=== PATIENT | male | born 1960 | race American Indian/Alaskan Native ===

== ENCOUNTER 2018-03-19 07:16 | Emergency (ER) | payer MEDICAID ==
[2018-03-19] MEDS ORDERED: Naloxone 0.4 mg/ml Inj (Adult) IVP STA (07:32)
--- NOTE | 2018-03-19 07:46 | ED PDOC ---
HPI: Psych/Substance Abuse Time Seen by Provider: 03/19/18 07:22 Chief Complaint (Nursing): Altered Mental Status ED Caveat: Other (unresponsive) Onset/Duration Of Symptoms: Hrs (today) Current Symptoms Are (Timing): Still Present Additional Complaint(s): Yaya Brennan is a 58 year old male, with unknown past medical history, who was brought to the emergency department by EMS after patient was found unresponsive on a park bench. History limited due to patient's clinical condition. Past Medical History Reviewed: Unable To Obtain - Family History Family History: States: Unknown Family Hx - Allergies Allergies/Adverse Reactions: Allergies Allergy/AdvReac Type Severity Reaction Status Date / Time No Known Allergies Allergy Verified 03/27/15 19:43 Review of Systems Review Of Systems: ROS cannot be obtained secondary to pt's inabilty to answer questions. Physical Exam - Reviewed Nursing Documentation Reviewed: Yes Vital Signs Reviewed: Yes - Physical Exam Head Exam: Positive for: ATRAUMATIC, NORMOCEPHALIC Skin: Positive for: Normal Color, Warm, Dry Eye Exam: Negative for: PERRL (Pupils pinpoint and slowly reactive) Neck: Positive for: Supple (nontender) Cardiovascular/Chest: Positive for: Regular Rate, Rhythm. Negative for: Murmur Respiratory: Positive for: Normal Breath Sounds. Negative for: Respiratory Distress Gastrointestinal/Abdominal: Positive for: Normal Exam, Soft. Negative for: Tenderness Back: Positive for: Normal Inspection (No deformity or tenderness) Extremity: Positive for: Normal ROM (Full ROM). Negative for: Deformity, Other (track tamayo ) Neurologic/Psych: Negative for: Alert (sleepy, lethargic and difficult to arouse ), Motor/Sensory Deficits (able to move all extremities with equal strength bilaterally) - Laboratory Results Result Diagrams: 03/19/18 07:50 03/19/18 07:50 - Progress Re-evaluation Time: 13:13 Condition: Improved (awake responsive. No focal deficits denies SI/HI) Medical Decision Making Medical Decision Making: Time: 07:22 Initial Plan: --Head w/o contrast --EKG --Alcohol serum --CMP --Drug screen, urine --Urine dipstick --CBC w/ differential --Chest portable [RAD] --Narcan 0.4mg IVP --Reevaluation 09:[address] FINDINGS: HEMORRHAGE: No intracranial hemorrhage. BRAIN: Normal cooley-white matter differentiation and density are appreciated throughout the cerebrum and cerebellum with the brainstem appearing unremarkable as well. There is no mass effect. There is no suspicious extra-axial fluid collection and the midline brain anatomy appears diffusely unremarkable. VENTRICLES: Unremarkable. No hydrocephalus. CALVARIUM: No destructive bony lesion or displaced fracture identified including through the skullbase. PARANASAL SINUSES: Incidental mucosal inflammatory changes are identified are identified affecting the ethmoid sinuses diffusely as well as right maxillary sinus. MASTOID AIR CELLS: Unremarkable as visualized. No inflammatory changes. OTHER FINDINGS: None. IMPRESSION: No acute intracranial findings identified including hemorrhage and no fracture is identified either. Incidental limited sinus disease as discussed above. 09:40 CXR FINDINGS: LUNGS: No active pulmonary disease. Limited crowding of the bilateral bronchovascular markings identified without definite alveolitis. PLEURA: No significant pleural effusion identified, no pneumothorax apparent. CARDIOVASCULAR: Normal. OSSEOUS STRUCTURES: No significant abnormalities. VISUALIZED UPPER ABDOMEN: Normal. OTHER FINDINGS: None. IMPRESSION: Crowded bronchovascular markings bowel bases without definite alveolitis, pleural effusion or pulmonary vascular congestion. ----- Scribe Attestation: Documented by Isidoro Ramirez, acting as a scribe for Osbaldo King MD. Provider Scribe Attestation: All medical record entries made by the Scribe were at my direction and personally dictated by me. I have reviewed the chart and agree that the record accurately reflects my personal performance of the history, physical exam, medical decision making, and the department course for this patient. I have also personally directed, reviewed, and agree with the discharge instructions and disposition. Disposition - Clinical Impression Clinical Impression: Substance abuse - Patient ED Disposition Is Patient to be Admitted: No Counseled Patient/Family Regarding: Studies Performed, Diagnosis, Need For Followup - Disposition Referrals: [facility] [Outside] Disposition: Routine/Home Disposition Time: 13:13 Condition: FAIR Instructions: Drug Abuse and Drug Addiction (DC) Forms: [employer] (Kiswahili)
[2018-03-19 08:06] LABS: BASO % 0.8 % (0.0-2.0); EOS # 0.2 K/uL (0.0-0.7); HEMOGLOBIN 13.8 g/dL (12.0-18.0); LYMPH # 0.8 K/uL (1.0-4.3); LYMPH % 14.4 % (20.0-40.0); MEAN CELL VOLUME 90.8 fl (80.0-94.0); MEAN CORPUSCULAR HGB CONC 33.1 g/dL (33.0-37.0); MEAN PLATELET VOLUME 7.8 fl (7.2-11.7); MONO # 0.4 K/uL (0.0-0.8); MONO % 7.4 % (0.0-10.0); NEUT % 74.4 % (50.0-75.0); NRBC % 0.1 % (0.0-0.0); RBC 4.59 Mil/uL (4.40-5.90); RED CELL DISTRIBUTION WIDTH 14.9 % (11.5-14.5); WHITE BLOOD COUNT 5.4 K/uL (4.8-10.8)
[2018-03-19 08:18] LABS: ALB/GLOB RATIO 1.1 (1.0-2.1); ALBUMIN 4.2 g/dL (3.5-5.0); ALT/SGPT 33 U/L (21-72); AST/SGOT 45 U/L (17-59); BLOOD UREA NITROGEN 10 mg/dl (9-20); CALCIUM 9.5 mg/dL (8.4-10.2); GFR NON-AFRICAN AMERICAN > 60
--- NOTE | 2018-03-19 09:13 | CARD ---
APPROVED REPORT Date of service: 03/19/2018 EKG Measurement Heart [id number] <Conclusion> Normal sinus rhythm with sinus arrhythmia Normal ECG
--- NOTE | 2018-03-19 09:16 | CT ---
Date of service: 03/19/2018 PROCEDURE: CT HEAD WITHOUT CONTRAST. HISTORY: r/o bleed COMPARISON: None available. TECHNIQUE: Axial computed tomography images were obtained through the head/brain without intravenous contrast. Radiation dose: Total exam DLP = 891.03 mGy-cm. This CT exam was performed using one or more of the following dose reduction techniques: Automated exposure control, adjustment of the mA and/or kV according to patient size, and/or use of iterative reconstruction technique. FINDINGS: HEMORRHAGE: No intracranial hemorrhage. BRAIN: Normal cooley-white matter differentiation and density are appreciated throughout the cerebrum and cerebellum with the brainstem appearing unremarkable as well. There is no mass effect. There is no suspicious extra-axial fluid collection and the midline brain anatomy appears diffusely unremarkable. VENTRICLES: Unremarkable. No hydrocephalus. CALVARIUM: No destructive bony lesion or displaced fracture identified including through the skullbase. PARANASAL SINUSES: Incidental mucosal inflammatory changes are identified are identified affecting the ethmoid sinuses diffusely as well as right maxillary sinus. MASTOID AIR CELLS: Unremarkable as visualized. No inflammatory changes. OTHER FINDINGS: None. IMPRESSION: No acute intracranial findings identified including hemorrhage and no fracture is identified either. Incidental limited sinus disease as discussed above.
--- NOTE | 2018-03-19 09:41 | RAD ---
Date of service: 03/19/2018 HISTORY: cough COMPARISON: No prior. FINDINGS: LUNGS: No active pulmonary disease. Limited crowding of the bilateral bronchovascular markings identified without definite alveolitis. PLEURA: No significant pleural effusion identified, no pneumothorax apparent. CARDIOVASCULAR: Normal. OSSEOUS STRUCTURES: No significant abnormalities. VISUALIZED UPPER ABDOMEN: Normal. OTHER FINDINGS: None. IMPRESSION: Crowded bronchovascular markings bowel bases without definite alveolitis, pleural effusion or pulmonary vascular congestion.
[2018-03-19 10:23] LABS: BARBITURATES, UR NEGATIVE (NEGATIVE); BENZODIAZEPINES, UR POSITIVE (NEGATIVE); OPIATES, UR POSITIVE (NEGATIVE); PHENCYCLIDINE, UR POSITIVE (NEGATIVE)
[2018-03-19 11:57] VITALS: RESP 16
[2018-03-19 13:27] VITALS: BP 144/99; PULSE 98; TEMP 99.1; O2SAT 100
== END 2018-03-19 13:54 | disposition home or self-care (01) ==
LOC: H.ER 07:16
DX: F19.10 Other psychoactive substance abuse, uncomplicated (principal)
CPT/HCPCS: 70450; 71045; 80053; 80320; 80324; 80345; 80346; 80349; 80353; 80358; 80361; 82948; 83992; 85025; 93005; 96374; 99285; J2310